=== PATIENT | male | born 1950 | race Two or more races ===

== ENCOUNTER → 2016-06-27 | Outpatient (CLI) | payer OTHER ==
[2016-01-09 13:39] VITALS: BP 113/82
[~2016-06-27] MED LIST: ATOR20TA58 PO; CONTRAST GIVEN MC PRN; DICL100G7 TP; DOCU-27 PO; HYDR-2666 PO; HYDR-971 PO; HYDR25SU18 RC; IBUPROFEN PO; IOHEXOL 300 MG/ML 100ML VIAL. IV ONE; OMEP20TA63 PO; ONDA4TAB10 PO; OXYC10TA32 PO; OXYC5TAB88 PO; Oxycodone Hcl/Acetaminophen PO; RANI150T2 PO; Sennosides/Docusate Sodium PO; WARF5TAB PO; Warfarin Sodium MC; ZOLP5TAB PO
--- NOTE | 2016-06-27 09:51 | KCIC ---
PROCEDURE MRI of the lumbar spine without contrast 06/27/2016 HISTORY Worsening chronic low back pain which radiates down both legs. Right knee numbness. TECHNIQUE Unenhanced T1 weighted and T2 weighted sagittal and axial and inversion recovery sagittal images of the lumbar spine were obtained. FINDINGS Comparison is made to radiographs of the lumbar spine dated 06/12/2016. The patient has transitional vertebral anatomy. The transitional vertebral segment will be referred to by the letter T. It is sacralized. A hypoplastic disc is seen at T-S1. Degenerative signal changes are seen involving all of the discs of the lumbar spine. Degenerative signal changes are seen within the marrow surrounding these discs. The conus medullaris is normal in morphology, position, and signal characteristics. At the L1-2 disc space there is mild generalized disc bulge. This is eccentric to the right. Degenerative changes are seen involving the facet joints bilaterally. These findings do not result in significant central spinal canal or neural foraminal stenosis. At the L2-3 disc space there is a mild to moderate generalized disc bulge. This is eccentric to the right. Degenerative changes are seen involving the facet joints bilaterally. There is prominence of the posterior epidural fat. These findings when combined result in mild central spinal canal stenosis. No neural foraminal stenosis is seen. At the L3-4 disc space there is mild generalized disc bulge. This is eccentric to the left. Degenerative changes are seen involving the facet joints bilaterally. There is mild to moderate ligamentum flavum hypertrophy bilaterally. There is prominence of the posterior epidural fat. These findings when combined result in mild central spinal canal stenosis. No neural foraminal stenosis is seen. At the L4-5 disc space there is a mild to moderate generalized disc bulge. This is eccentric to the left. Superimposed on this disc bulge is a left lateral disc osteophyte complex. This measures 4 millimeters in AP diameter. Degenerative changes are seen involving the facet joints bilaterally. Moderate to severe ligamentum flavum hypertrophy is noted. These findings when combined result moderate to severe central spinal canal stenosis. Mild to moderate left neural foraminal stenosis is seen. The right neural foramina is patent. At the L5-T disc space there is a mild to moderate generalized disc bulge. This is eccentric to the right. Degenerative changes are seen involving the facet joints bilaterally. There is moderate to severe ligamentum flavum hypertrophy bilaterally. These findings when combined result in mild to moderate central spinal canal stenosis. Mild right neural foraminal stenosis is seen. The left neural foramina is patent. The T-S1 disc space is normal. IMPRESSION The changes of degenerative disc disease are seen throughout the lumbar spine. These findings result in mild central spinal canal stenosis at L2-3 and L3-4, moderate to severe central spinal canal stenosis at L4-5 and mild to moderate central spinal canal stenosis at L5-T. Mild to moderate left neural foraminal stenosis is seen at L4-5. Mild right neural foraminal stenosis is seen at L5-T. Electronically signed by: Konrad Fink MD (Jun 27, 2016 09:49:46)
== END | disposition home or self-care (01) ==
LOC: KCIC MRI 08:28
PROVIDERS: ATTEND Orthopaedic Surgery Sports Medicine
DX: M51.16 Intervertebral disc disorders with radiculopathy, lumbar region (principal); M54.5 Low back pain
CPT/HCPCS: 72148

== ENCOUNTER → 2016-07-31 | Outpatient (CLI) | payer OTHER ==
[2016-01-09 13:39] VITALS: BP 113/82
[~2016-07-31] MED LIST changes: -CONTRAST GIVEN MC PRN; -IOHEXOL 300 MG/ML 100ML VIAL. IV ONE; +WARF-78 PO; -WARF5TAB PO
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
== END | disposition home or self-care (01) ==
LOC: PNCL 10:31
PROVIDERS: ATTEND Anesthesiology
DX: M54.5 Low back pain (principal); M79.605 Pain in left leg; M79.604 Pain in right leg
CPT/HCPCS: 99214

== ENCOUNTER → 2016-08-14 | Outpatient (CLI) | payer OTHER ==
[2016-01-09 13:39] VITALS: BP 113/82
[~2016-08-14] MED LIST changes: +IOHEXOL 180 MG/ML 10 ML VIAL. ONE; +methylPREDNISolone ACETATE 40 MG/ML VIAL. ONE; +methylPREDNISolone ACETATE 80 MG/ML VIAL. ONE
--- NOTE | 2016-08-14 23:44 | PAIN ---
DATE OF SERVICE: 08/14/2016 DIAGNOSIS: Lumbar radiculopathy with lumbar degenerative disk disease and lumbar spinal stenosis. HISTORY OF PRESENT ILLNESS: The patient is a 66-year-old male who returns for followup status post initial evaluation and preauthorization for lumbar epidural steroid injection. The patient returns today reporting still significant pain in the low back and bilateral lower extremities, right greater than left side, in the posterior gluteus, posterior thigh, lower leg, calf and to the feet. The patient reports no new motor or sensory deficits. No new bowel or bladder incontinence, but still significant pain. The patient did get approved for an injection today, would like to proceed with it. The patient reports his pain is a 10 on a scale of 10, described as constant, severe, dull, aching radiating into the lower legs, again worse on the right side. The patient reports no new motor or sensory deficits, no new bowel or bladder incontinence or other complaints. PHYSICAL EXAMINATION: VITAL SIGNS: Today, the patient's blood pressure is 135/91, pulse of 90, respirations 18, temperature 98.2 degrees Fahrenheit, height is 5 feet 5 inches, weight is 214 pounds. GENERAL: The patient is awake, alert, oriented and appropriate, very pleasant demeanor. The patient is accompanied by his spouse who served as an funds development director/evaluation engineer. HEENT: Exam shows normocephalic and atraumatic. The patient is wearing eyeglasses. Extraocular movements are intact and symmetrical. Oral cavity shows mucous membranes are moist and pink. Dentition is intact. NECK: Shows anterior throat supple without palpable lymphadenopathy noted. Swallow reflex is symmetrical. CHEST: Shows normal on inspection. Breath sounds are clear to auscultation bilaterally. HEART: Shows S1 and S2 clear. ABDOMEN: Obese, soft, nontender, nondistended. No palpable organomegaly. No new rebound or guarding demonstrated. BACK: Shows spine grossly in the midline. Lumbar paraspinous muscle shows some moderate tenderness with palpation in the lower lumbar distribution bilaterally without radiation. EXTREMITIES: The patient's lower extremities showed deep tendon reflexes at 2+ in the patella and 1+ tendo calcaneus tendons. Motor exam is approximately 4 on a scale of 5 with quadriceps, hamstrings and dorsiflexion, extension and equal. Options were discussed with the patient. The patient's old chart was reviewed as his current medication regimen and updated. Current review of systems updated today as well, and we will proceed with a lumbar epidural steroid injection today with fluoroscopic guidance. Risks were again discussed including but not limited to bleeding, infection, possibility of epidural hematoma, subsequent neurologic compromise, dural puncture, headaches, spinal cord and/or nerve damage, side effects of steroid medication and poor results regarding pain control. The patient understands and wishes to proceed. The patient will return to clinic in approximately 2 weeks for followup. He was counseled on his return appointment, activity level and side effects to be aware of. DIAGNOSES: Lumbar radiculopathy with lumbar spinal stenosis and lumbar degenerative disk disease. PROCEDURE: Lumbar epidural steroid injection in translaminar approach at the L5-S1 level using C-arm fluoroscopic guidance under sterile prep and drape using local anesthetic. MEDICATIONS INJECTED: Depo-Medrol 120 mg plus 10 mL of preservative-free normal saline and 2 mL of Isovue for contrast. CONDITION AT DISCHARGE: Stable. The patient tolerated the procedure well, had no complications. ANGEL SUNSHINE MD DR: CHANEL/chidi JOB#: [id number] / [id number]
== END | disposition home or self-care (01) ==
LOC: PNCL 10:14
PROVIDERS: ATTEND Anesthesiology
DX: M51.16 Intervertebral disc disorders with radiculopathy, lumbar region (principal); M48.06 Spinal stenosis, lumbar region; E78.00 Pure hypercholesterolemia, unspecified; E66.9 Obesity, unspecified; K21.9 Gastro-esophageal reflux disease without esophagitis; M16.11 Unilateral primary osteoarthritis, right hip; M17.11 Unilateral primary osteoarthritis, right knee; Z96.651 Presence of right artificial knee joint; Z86.39 Personal history of other endocrine, nutritional and metabolic disease
CPT/HCPCS: 62323; J1030; J1040

== ENCOUNTER → 2016-09-05 | Outpatient (CLI) | payer OTHER ==
[2016-01-09 13:39] VITALS: BP 113/82
[~2016-09-05] MED LIST changes: -IOHEXOL 180 MG/ML 10 ML VIAL. ONE; -methylPREDNISolone ACETATE 40 MG/ML VIAL. ONE; -methylPREDNISolone ACETATE 80 MG/ML VIAL. ONE
--- NOTE | 2016-09-06 07:16 | PAIN ---
DATE OF SERVICE: 09/05/2016 PROGRESS NOTE FOR PAIN CLINIC DIAGNOSIS: Lumbar radiculopathy with lumbar degenerative disk disease and lumbar spinal stenosis. HISTORY OF PRESENT ILLNESS: The patient is a 66-year-old male who returns for followup status post lumbar epidural steroid injection x 1. The patient reports about 50% improvement in the low back and left leg is completely pain free. The patient reports still some pain in the right leg in the right posterior gluteus, posterior thigh, posterior calf, radiating, rates it a 10 on a scale of 10 at its worst and an 8 ____ pain, is a sharp, radiating, severe, shooting, sometimes aching and burning pain in the right leg, but again the left leg is doing much better. The patient reports it has not been awakening him from sleep at night. He has been increasing his activity with greater ease and comfort, especially with the left leg, but again some pain in the left than the right side. The patient reports no new motor or sensory deficits, no new bowel or bladder incontinence, very pleased with his progress thus far. PHYSICAL EXAMINATION: VITAL SIGNS: The patient's blood pressure is 132/90, pulse 78, respirations are 20, temperature is 98.0 degrees Fahrenheit. Height is 5 feet 5 inches, weight is 212 pounds. GENERAL: The patient is awake, alert, oriented, appropriate, very pleasant demeanor. HEENT: Shows normocephalic, atraumatic. Extraocular movements are intact and symmetrical. Oral cavity: His mucous membranes are moist and pink. Dentition is intact. NECK: Shows anterior throat supple without palpable lymphadenopathy noted. CHEST: Shows normal on inspection. Breath sounds are clear to auscultation bilaterally. HEART: Shows S1 and S2 clear. ABDOMEN: Soft, nontender, nondistended. No palpable organomegaly is noted. BACK: Shows spine grossly in the midline. Lumbar paraspinous muscle shows symmetrical on inspection, on palpation shows some [id number] tenderness with palpation diffusely in the lumbar paraspinous muscles, but without radiation. No tenderness over the sacrum or sacroiliac regions. EXTREMITIES: Lower extremities show deep tendon reflexes at 2+ in the patellar, 1+ tendo-calcaneus tendons, are equal. Motor exam is strong with approximately 4 on a scale of 5, dorsiflexion, extension, quadriceps and hamstring flexion and are equal bilaterally. PLAN: Options were discussed with the patient. The patient's old chart was reviewed as was his current medication regimen and updated. Current review of systems updated today as well. We will preauthorize the patient for a second lumbar epidural steroid injection as he did very well with the first one with still some radicular pain returning on the right side, left side again near 100% improvement. Once the patient is preauthorized, we will have him return and proceed at that time. ANGEL SUNSHINE MD DR: CHANEL/chidi JOB#: [id number] / [id number]
== END | disposition home or self-care (01) ==
LOC: PNCL 10:23
PROVIDERS: ATTEND Anesthesiology
DX: M51.16 Intervertebral disc disorders with radiculopathy, lumbar region (principal); M48.06 Spinal stenosis, lumbar region
CPT/HCPCS: 99212

== ENCOUNTER → 2016-09-19 | Outpatient (CLI) | payer OTHER ==
[2016-01-09 13:39] VITALS: BP 113/82
[~2016-09-19] MED LIST changes: +DICL100G18 TP; -DICL100G7 TP; +DOCU-109 PO; -DOCU-27 PO; -HYDR-2666 PO; +HYDR-2758 PO; +IOHEXOL 180 MG/ML 10 ML VIAL. ONE; -OXYC10TA32 PO; +OXYC10TA45 PO; +methylPREDNISolone ACETATE 40 MG/ML VIAL. ONE; +methylPREDNISolone ACETATE 80 MG/ML VIAL. ONE
--- NOTE | 2016-09-20 00:18 | PAIN ---
DATE OF SERVICE: 09/19/2016 DIAGNOSES: Lumbar radiculopathy with lumbar spinal stenosis and lumbar degenerative disk disease. HISTORY OF PRESENT ILLNESS: The patient is a 66-year-old male who returns for followup status post lumbar epidural steroid injection x 1. The patient reports about 50% improvement, but still some pain in the low back and right lower extremity as was previously, reports as high as 10 on a scale of 10 and least as a 6 on a scale of 10. Once again, the patient has his son with him who serves as a freelance interpreter/translator for [place] [employer]. The patient reports otherwise doing well. No new motor or sensory deficits, no bowel or bladder incontinence, still sharp pain in the low back, right lower extremity radiating to the anterior thigh, medial thigh and posterior thigh to some extent as well. The patient reports it awakens him from sleep occasionally, ____ every night he sleeps about 6-7 hours at a time and he repositions, ____ on his right side is much better. The patient reports no new changes. No new bowel or bladder incontinence, no new motor or sensory deficits. PHYSICAL EXAMINATION: VITAL SIGNS: The patient's blood pressure 129/83, pulse 87, respirations 20, temperature 98.1 degrees Fahrenheit, weight is 212 pounds. GENERAL: The patient is awake, alert, oriented, appropriate, very pleasant demeanor. HEENT: Head shows normocephalic, atraumatic. Extraocular movements are intact and symmetrical. Oral cavity, mucous membranes are moist and pink. Dentition is intact. NECK: Shows anterior throat supple without palpable lymphadenopathy noted. Swallow reflex is symmetrical. CHEST: Shows normal on inspection. Breath sounds are clear to auscultation bilaterally. HEART: Shows S1 and S2 clear. ABDOMEN: Soft, nontender, nondistended. BACK: Shows spine grossly in the midline. Lumbar paraspinous muscle shows some moderate tenderness to palpation, but only diffusely bilaterally in the lower lumbar distribution without atrophy, hypertrophy or asymmetry. The patient shows good rotation of motion of the lumbar spine, both laterally greater than 10 degrees right and left as well as extension greater than 10 degrees, forward flexion to 45 degrees without difficulty. EXTREMITIES: Lower extremities showed deep tendon reflexes 2+ in the patellar, 1+ tendo calcaneus tendons. Motor exam is approximately 4 on a scale of 5, but equal and symmetrical with dorsiflexion, extension, quadriceps and hamstring flexion bilaterally. PLAN: Options were discussed with the patient. The patient's old chart was reviewed as his current medication regimen updated. Current review of systems updated today as well. We will proceed with the second lumbar epidural steroid injection using C-arm fluoroscopic guidance. Risks were again discussed including, but not limited to bleeding, infection, possibility of epidural hematoma and subsequent neurologic compromise, dural puncture, headaches, spinal cord and/or nerve damage, side effects of steroid medication and poor results regarding pain control. The patient understands and wishes to proceed. The patient will return to clinic in approximately 2 weeks for followup. He was counseled to return appointment, activity level and side effects to be aware of. DIAGNOSES: Lumbar radiculopathy with lumbar spinal stenosis and lumbar degenerative disk disease. PROCEDURES: Lumbar epidural steroid injection in translaminar approach at the L5-S1 level using C-arm fluoroscopic guidance under sterile prep and drape using local anesthetic. MEDICATIONS INJECTED: A total of 120 mg Depo-Medrol plus 10 mL preservative-free normal saline and 2 mL Isovue for contrast. CONDITION AT DISCHARGE: Stable. The patient tolerated procedure well, had no complications. ANGEL SUNSHINE MD DR: CHANEL/chidi JOB#: [id number] / [id number]
== END | disposition home or self-care (01) ==
LOC: PNCL 09:45
PROVIDERS: ATTEND Anesthesiology
DX: M51.16 Intervertebral disc disorders with radiculopathy, lumbar region (principal); M48.06 Spinal stenosis, lumbar region; E78.00 Pure hypercholesterolemia, unspecified; K21.9 Gastro-esophageal reflux disease without esophagitis; E66.9 Obesity, unspecified; M16.11 Unilateral primary osteoarthritis, right hip; M17.11 Unilateral primary osteoarthritis, right knee; Z96.651 Presence of right artificial knee joint; Z86.39 Personal history of other endocrine, nutritional and metabolic disease; Z86.69 Personal history of other diseases of the nervous system and sense organs; Z68.44 Body mass index [BMI] 60.0-69.9, adult
CPT/HCPCS: 62323; J1030; J1040

== ENCOUNTER → 2017-01-15 | Outpatient (CLI) | payer OTHER ==
[2016-01-09 13:39] VITALS: BP 113/82
[~2017-01-15] MED LIST changes: -IOHEXOL 180 MG/ML 10 ML VIAL. ONE; -methylPREDNISolone ACETATE 40 MG/ML VIAL. ONE; -methylPREDNISolone ACETATE 80 MG/ML VIAL. ONE
--- NOTE | 2017-01-15 11:50 | PAIN ---
DATE OF SERVICE: 01/15/2017 PROGRESS NOTE FOR PAIN CLINIC DIAGNOSES: Lumbar radiculopathy with lumbar spinal stenosis with lumbar degenerative disk disease. HISTORY OF PRESENT ILLNESS: The patient is a 66-year-old male who returns for followup, last seen 09/19/2016. The patient did very well. He had a lumbar epidural steroid injection at that time with near 100% improvement for about one month. The patient reports for the first 2 weeks, he was doing very, very well. After that the pain began to return very slightly but still have 90% improvement for the next 2 weeks. After that the pain is returning very gradually, not with any new injury or accident that he is aware of but still pain returning now over the past month or two with pain in the low back, right posterior gluteus, posterior thigh and to the posterior calf radiating in the L5-S1 dermatomal distribution with 10 on a 10 scale at its worst, is a 9 on average and 8 is at least and is 8 today. The patient was with constant, severe, sharp, aching and shooting pain, can be dull tingling and cramping as well. The patient reports it awakens him from sleep occasionally, sleeps 4 hours at a time. He is able to be repositioned and get back to sleep without too much difficulty. The patient reports no new motor or sensory deficits, no new bowel or bladder incontinence or other complaints. PHYSICAL EXAMINATION: VITAL SIGNS: The patient's blood pressure 156/109, pulse 85, respirations 18 and temperature 98.0 degrees Fahrenheit. Height is 5 feet 5 inches and weighs 222 pounds. GENERAL: The patient is awake, alert, oriented, appropriate and very pleasant demeanor. HEENT: Head shows normocephalic and atraumatic. Extraocular movements are intact and symmetrical. Oral cavity, mucous membranes are moist and pink. Dentition is intact. NECK: Shows anterior throat supple without palpable lymphadenopathy noted. Swallow reflex is symmetrical. CHEST: Shows normal on inspection. Breath sounds are clear to auscultation bilaterally. HEART: Shows S1 and S2 clear. ABDOMEN: Soft, nontender and nondistended. No palpable organomegaly noted. No rebound or guarding demonstrated. BACK: Shows spine grossly in the midline. Normal appearing cervical, lumbar and thoracic kyphotic and lordotic curvatures with inspection of the lumbar distribution shows symmetrical musculature with the palpation shows moderately tender with palpation in the lower lumbar distribution and slightly more on the right than the left but without an asymmetry. The patient shows good rotational motion of the lumbar spine, both laterally as well as extension and flexion. LOWER EXTREMITIES: Show deep tendon reflexes 2+ in the patellar, 1+ tendo-calcaneus tendons, are equal. Motor exam is strong with approximately 4 on a scale of 5 dorsiflexion, extension but symmetrical bilaterally. Positive straight leg raise is noted on the right side about 40 degrees but decreased with knee flexion and left side is negative. Peripheral pulses are 1+ posterior tibial bilaterally. No peripheral edema is noted. Options were discussed with the patient and the patient's old chart was reviewed as current and his current medication regimen updated. Current review of systems updated today as well and we will preauthorize the patient for a lumbar epidural steroid injection with recurrent radicular pain in the right lower extremity in the L5-S1 dermatomal distribution, again improved significantly by 100% for almost 1 month following his last injection. The patient was given Medrol Dosepak with instructions, side effects to be aware for the meantime and we will follow up in approximately 2 weeks as scheduled for lumbar epidural steroid injection at that time. ANGEL SUNSHINE MD DR: CHANEL/chidi JOB#: [id number] / [id number]
== END | disposition home or self-care (01) ==
LOC: PNCL 10:11
PROVIDERS: ATTEND Anesthesiology
DX: M51.16 Intervertebral disc disorders with radiculopathy, lumbar region (principal); M48.061 Spinal stenosis, lumbar region without neurogenic claudication; M79.604 Pain in right leg
CPT/HCPCS: 99212

== ENCOUNTER → 2017-06-12 | Outpatient (CLI) | payer OTHER | END | disposition home or self-care (01) | LOC: PNCL 07:41 | DX: M48.061 Spinal stenosis, lumbar region without neurogenic claudication (principal); M51.36 Other intervertebral disc degeneration, lumbar region; M54.16 Radiculopathy, lumbar region | CPT/HCPCS: 99212 ==

== ENCOUNTER → 2017-06-26 | Outpatient (CLI) | payer OTHER ==
[~2017-06-26] MED LIST changes: -ATOR20TA58 PO; -DICL100G18 TP; -DOCU-109 PO; -HYDR-2758 PO; -HYDR-971 PO; -HYDR25SU18 RC; -IBUPROFEN PO; +IOHEXOL 180 MG/ML 10 ML VIAL.; -OMEP20TA63 PO; -ONDA4TAB10 PO; -OXYC10TA45 PO; -OXYC5TAB88 PO; -Oxycodone Hcl/Acetaminophen PO; -RANI150T2 PO; -Sennosides/Docusate Sodium PO; -WARF-78 PO; -Warfarin Sodium MC; -ZOLP5TAB PO; +methylPREDNISolone ACETATE 40 MG/ML VIAL.; +methylPREDNISolone ACETATE 80 MG/ML VIAL.
== END | disposition home or self-care (01) ==
LOC: PNCL 07:49
DX: M51.16 Intervertebral disc disorders with radiculopathy, lumbar region (principal); M48.061 Spinal stenosis, lumbar region without neurogenic claudication; G89.29 Other chronic pain; E78.00 Pure hypercholesterolemia, unspecified; M19.90 Unspecified osteoarthritis, unspecified site; K21.9 Gastro-esophageal reflux disease without esophagitis; F17.210 Nicotine dependence, cigarettes, uncomplicated; Z96.651 Presence of right artificial knee joint; Z98.890 Other specified postprocedural states; Z79.899 Other long term (current) drug therapy
CPT/HCPCS: 62323; J1030; J1040; Q9965

== ENCOUNTER → 2017-07-10 | Outpatient (CLI) | payer OTHER | LOC: PNCL 07:35 | DX: M51.16 Intervertebral disc disorders with radiculopathy, lumbar region (principal); M48.061 Spinal stenosis, lumbar region without neurogenic claudication; E78.00 Pure hypercholesterolemia, unspecified; E66.9 Obesity, unspecified; K21.9 Gastro-esophageal reflux disease without esophagitis; Z96.651 Presence of right artificial knee joint; M16.11 Unilateral primary osteoarthritis, right hip; M17.11 Unilateral primary osteoarthritis, right knee | CPT/HCPCS: 62323; J1030; J1040; Q9965 ==

== ENCOUNTER → 2017-07-24 | Outpatient (CLI) | payer OTHER | END | disposition home or self-care (01) | LOC: PNCL 07:43 | DX: M51.16 Intervertebral disc disorders with radiculopathy, lumbar region (principal); M48.061 Spinal stenosis, lumbar region without neurogenic claudication | CPT/HCPCS: 99212 ==

== ENCOUNTER → 2018-08-23 | Outpatient (CLI) | payer OTHER ==
[2016-01-09 13:39] VITALS: BP 113/82
[~2018-08-23] MED LIST changes: +ATOR20TA58 PO; +DICL100G18 TP; +DOCU-109 PO; +HYDR-2761 PO; +HYDR-3164 PO; +HYDR25SU18 RC; +IBUP-1027 PO; +IBUPROFEN PO; -IOHEXOL 180 MG/ML 10 ML VIAL.; +NAPR-514 PO; +OMEP20TA63 PO; +ONDA4TAB10 PO; +OXYC10TA46 PO; +OXYC5TAB88 PO; +Oxycodone Hcl/Acetaminophen PO; +RANI150T2 PO; +Sennosides/Docusate Sodium PO; +WARF-78 PO; +Warfarin Sodium MC; +ZOLP5TAB PO; -methylPREDNISolone ACETATE 40 MG/ML VIAL.; -methylPREDNISolone ACETATE 80 MG/ML VIAL.
--- NOTE | 2018-08-23 13:08 | PAIN ---
DATE OF SERVICE: 08/23/2018 DIAGNOSIS: Lumbar radiculopathy with lumbar spinal stenosis, lumbar degenerative disk disease. HISTORY OF PRESENT ILLNESS: The patient is a 68-year-old male who returns for followup, last seen on 07/24/2017. The patient had lumbar epidural steroid injection, did very well, about 80% improvement, lasting for several months after the injection. The patient reports the pain is returning now and getting sooner, but has not been able to, but is here today with complaints to low back and right lower extremity with radiating pain in the posterior gluteus, posterior thigh, posterior calf, posterior ankle and into the foot on the right side, some across the low back. It was dull, aching on the left side as well, but mostly on the right side with radicular pain in the right L5-S1 dermatomal distribution as he has had previously. The patient reports his leg starts to feel numb, it is a shooting pain, is sharp and aching in the back as well as dull. The patient reports it is a 10 on a scale of 10 at all times, average, worst and least over the past week and is a 10 today. The patient reports the right leg does get numb with walking and standing, better with sitting or lying down, does not awaken him from sleep at night. Initially he was doing much better, doing increased distance walking, household activities, work activities, traveling with greater ease and comfort. The patient reports now the pain is returning significantly. He is using a cane, which he has with him today, using his left hand. The patient reports no new motor or sensory deficits, no new bowel or bladder incontinence or other complaints. PHYSICAL EXAMINATION: VITAL SIGNS: The patient's blood pressure 135/92, pulse 78, respirations 16, temperature is 98.0 degrees Fahrenheit, height is 5 feet 5 inches, and weight is 213 pounds. GENERAL: The patient is awake, alert, oriented, appropriate, very pleasant demeanor. HEENT: Head is normocephalic, atraumatic. Extraocular movements are intact and symmetrical. Oral cavity: Mucous membranes moist and pink. Dentition is intact. NECK: Shows anterior throat supple without palpable lymphadenopathy noted. Swallow reflex symmetrical. CHEST: Shows normal on inspection. Breath sounds clear to auscultation bilaterally. HEART: Shows S1, S2 clear. No murmurs auscultated. ABDOMEN: Soft, nontender, nondistended. No palpable organomegaly is noted. No rebound or guarding demonstrated. BACK: Shows spine grossly in the midline. Normal appearing thoracic kyphosis and lumbar lordotic curvature. Lumbar paraspinous muscle shows symmetrical on inspection. With palpation shows some moderate tenderness diffusely, but only diffusely bilaterally without radiation. The patient has good rotational motion of lumbar spine, both laterally as well as extension and flexion without significant difficulty. EXTREMITIES: Lower extremities show deep tendon reflexes 2+ in the patellar and tendo-calcaneus tendons. Motor exam is strong with approximately 4 on a scale of 5 right dorsiflexion and extension, 5/5 on the left. Peripheral pulses of 1+ posterior tibia. No peripheral edema is noted. The patient does have a positive straight leg raise on the right at about 45 degrees, decreased with knee flexion; left side is negative. Gaenslen's and Devyn's maneuvers are negative bilaterally as well. Options were discussed with the patient. The patient's old chart was reviewed as his current medication regimen updated. Current review of systems updated today as well. We will preauthorize the patient for a lumbar epidural steroid injection. It has been over a year, he did very well, about 80% improvement until the last month, still with radicular pain in right L5-S1 dermatomal distribution. We will plan on a translaminar approach at the L5-S1 level. Once approved, the patient will try Medrol Dosepak. In the meantime, was given instructions as well as side effects to be aware of with the medication. The patient will continue doing stretching and strengthening exercises that he has been doing over the past year and also walking daily, although it is getting more difficult, using his cane. Encouraged him to maintain this as well as the stretching and strengthening exercises he is already doing. We will follow up in approximately one week to plan on lumbar epidural steroid injection at that time. ANGEL SUNSHINE MD DR: CHANEL/chidi JOB#: [id number] / [id number]
== END | disposition home or self-care (01) ==
LOC: PNCL 08:28
PROVIDERS: ATTEND Anesthesiology
DX: M51.16 Intervertebral disc disorders with radiculopathy, lumbar region (principal); M48.061 Spinal stenosis, lumbar region without neurogenic claudication
CPT/HCPCS: G0463

== ENCOUNTER → 2018-09-07 | Outpatient (CLI) | payer OTHER ==
[2016-01-09 13:39] VITALS: BP 113/82
[~2018-09-07] MED LIST changes: +IOHEXOL 180 MG/ML 10 ML VIAL. ONE; +methylPREDNISolone ACETATE 40 MG/ML VIAL. ONE; +methylPREDNISolone ACETATE 80 MG/ML VIAL. ONE
--- NOTE | 2018-09-07 22:52 | PAIN ---
DATE OF SERVICE: 09/07/2018 PROGRESS NOTE FOR PAIN CLINIC: DIAGNOSES: Lumbar radiculopathy with lumbar spinal stenosis, lumbar degenerative disk disease. HISTORY OF PRESENT ILLNESS: The patient is a 68-year-old male who returns for followup status post evaluation and preauthorization for lumbar epidural steroid injection. The patient obtained that now and would like to proceed, still pain in the low back, right lower extremity as it was previously, posterior gluteus, posterior thigh, posterior calf, radiating to the foot, worse with walking, standing, changing positions. The patient is using a cane and has it with him today. Reports his pain has been fairly consistent, slightly better than it was on his last visit, but still significant. The patient reports it is aching, it is sharp and cramping in the low back and right leg and at times unbearable. The patient reports it is 9 on a scale of 10 at its worst, 7 on average, 7 at its least and is a 7 today. The patient reports no new motor or sensory deficits, no new bowel or bladder incontinence or other complaints. PHYSICAL EXAMINATION: VITAL SIGNS: The patient's blood pressure 123/83, pulse 78, respirations are 18, temperature 98.5 degrees Fahrenheit. Height is 5 feet 5 inches, weight is 213 pounds. GENERAL: The patient is awake, alert, oriented, appropriate, very pleasant demeanor. HEENT: Head is normocephalic, atraumatic. Extraocular movements are intact and symmetrical. Oral cavity: Mucous membranes moist and pink. Dentition is intact. NECK: Shows anterior throat supple without palpable lymphadenopathy noted. Swallow reflex symmetrical. CHEST: Shows normal with inspection. Breath sounds clear to auscultation bilaterally. HEART: Shows S1, S2 clear. No murmurs auscultated. ABDOMEN: Soft, nontender, nondistended. No palpable organomegaly is noted. No rebound or guarding demonstrated. BACK: Shows spine grossly in the midline. Slight exaggeration of the thoracic kyphosis and minor flattening of lumbar lordotic curvature. Lumbar paraspinous muscle shows symmetrical on inspection, with palpation shows some moderate tenderness diffusely bilaterally, but only diffusely without radiation. The patient has good rotational motion of lumbar spine, both laterally greater than 10 degrees right and left as well as extension greater than 10 degrees, forward flexion 45 degrees without significant pain. EXTREMITIES: The patient's lower extremities show deep tendon reflexes 2+ in the patellar, 1+ tendo-calcaneus tendons. Motor exam is strong with approximately 4 on a scale of 5 on the right with dorsiflexion and extension, 5/5 on the left, but intact and symmetrical with motion. Peripheral pulses are 1+ posterior tibia. No peripheral edema is noted. Options were discussed with the patient. The patient's old chart was reviewed as his current medication regimen updated. Current review of systems updated today as well. We will proceed with a lumbar epidural steroid injection today as the first in this series. Risks were again discussed including, but not limited to bleeding, infection, possibility of epidural hematoma, subsequent neurological compromise, dural-puncture headaches, spinal cord and/or nerve damage, side effects of steroid medication and poor results regarding pain control. The patient understands and wished to proceed. The patient will return to clinic in approximately 2 weeks for followup, was counseled as to return appointment, activity level and side effects to be aware of. DIAGNOSES: Lumbar radiculopathy with lumbar spinal stenosis, lumbar degenerative disk disease. PROCEDURES: Lumbar epidural steroid injection, translaminar approach at the L5-S1 level using C-arm fluoroscopic guidance under sterile prep and drape using local anesthetic. MEDICATION INJECTED: A total of 120 mg Depo-Medrol plus 10 mL of preservative-free normal saline and 2 mL of contrast. CONDITION AT DISCHARGE: Stable. The patient tolerated the procedure well, had no complications. ANGEL SUNSHINE MD DR: CHANEL/chidi JOB#: [id number] / [id number]
== END ==
LOC: PNCL 09:20
PROVIDERS: ATTEND Anesthesiology
DX: M51.16 Intervertebral disc disorders with radiculopathy, lumbar region (principal); M48.061 Spinal stenosis, lumbar region without neurogenic claudication; M54.5 Low back pain; M79.661 Pain in right lower leg
CPT/HCPCS: 62323; J1030; J1040; Q9965

== ENCOUNTER → 2018-09-27 | Outpatient (CLI) | payer OTHER ==
[2016-01-09 13:39] VITALS: BP 113/82
[~2018-09-27] MED LIST changes: -IOHEXOL 180 MG/ML 10 ML VIAL. ONE; -methylPREDNISolone ACETATE 40 MG/ML VIAL. ONE; -methylPREDNISolone ACETATE 80 MG/ML VIAL. ONE
--- NOTE | 2018-09-27 12:13 | PAIN ---
DATE OF SERVICE: 09/27/2018 DIAGNOSES: Lumbar radiculopathy with lumbar spinal stenosis, lumbar degenerative disk disease. HISTORY OF PRESENT ILLNESS: The patient is a 68-year-old male who returns for followup status post lumbar epidural steroid injection x 1. The patient reports about 70% improvement in his low back and right lower extremity pain, still with pain radiating to the right lower extremity, but much improved. He has increased his distance walking and doing activities at home, traveling with greater ease and comfort, sleeping better at night. The patient reports it is still traveling across the low back into the right lower extremity, posterolateral thigh, posterior gluteus, posterior calf into the ankle in an L5-S1 dermatomal distribution on the right side as it was previously, but feeling much better. He is still using a cane to ambulate. Rates his pain as a 3 on a scale of 10 at its worst, average and at its least and is a 3 today. The patient reports it is sharp and cramping in the back and radiating to the right lower extremity. No symptoms on the left side. The patient reports no overt motor loss, but significant fatigability with the right leg with walking and standing. The patient reports no new motor or sensory deficits, no new bowel or bladder incontinence or other complaints. PHYSICAL EXAMINATION: VITAL SIGNS: The patient's blood pressure 140/95, pulse 87, respirations 18, temperature 98.8 degrees Fahrenheit. Height is 5 feet 5 inches, weight is 211 pounds. GENERAL: The patient is awake, alert, oriented, appropriate, very pleasant demeanor. The patient is accompanied by his spouse and his daughter who acts as a senior software engineer analytics. HEENT: Head is normocephalic, atraumatic. The patient wears eye glasses. Extraocular movements are intact and symmetrical. Oral cavity: Mucous membranes moist and pink. NECK: Shows anterior throat supple. CHEST: Shows normal on inspection. Breath sounds are clear bilaterally. HEART: Shows S1, S2 clear. ABDOMEN: Soft, nontender, nondistended. BACK: Shows spine grossly in the midline. Lumbar paraspinous muscle shows symmetrical on inspection, with palpation shows some moderate tenderness diffusely, but without radiation. EXTREMITIES: Lower extremities show deep tendon reflexes at 2+ in the patellar and 1+ tendocalcaneous tendons. Motor exam is approximately 4 on a scale of 5 on the right with dorsiflexion, extension, quadriceps and hamstring flexion and 5/5 on the left. Peripheral pulses are 1+ posterior tibial. No peripheral edema is noted bilaterally. The patient still has mild straight leg raise on the right side at about 40-45 degrees, which is decreased with knee flexion, left side is negative. Peripheral pulses are 1+ posterior tibial. No peripheral edema is noted bilaterally. Options were discussed with the patient. The patient's old chart was reviewed, as his current medication regimen updated. Current review of systems updated today as well. We will preauthorize the patient for a second in the series of lumbar epidural steroid injection with fluoroscopic guidance. The patient is doing quite a bit better with 70% improvement for the first 3 weeks since his last injection with pain radiating at L5-S1 dermatomal distribution on the right side as previously. We will plan on lumbar epidural steroid injection at L5-S1 level, translaminar approach, after approval. The patient will continue doing strengthening and stretching exercises, keep walking to the best of ability and tolerance in the meantime. ANGEL SUNSHINE MD DR: CHANEL/chidi JOB#: [id number] / [id number]
== END | disposition home or self-care (01) ==
LOC: PNCL 10:09
PROVIDERS: ATTEND Anesthesiology
DX: M51.16 Intervertebral disc disorders with radiculopathy, lumbar region (principal); M48.061 Spinal stenosis, lumbar region without neurogenic claudication
CPT/HCPCS: G0463

== ENCOUNTER → 2018-10-12 | Outpatient (CLI) | payer OTHER ==
[2016-01-09 13:39] VITALS: BP 113/82
[~2018-10-12] MED LIST changes: +IOHEXOL 180 MG/ML 10 ML VIAL. ONE; +methylPREDNISolone ACETATE 40 MG/ML VIAL. ONE; +methylPREDNISolone ACETATE 80 MG/ML VIAL. ONE
--- NOTE | 2018-10-12 19:42 | PAIN ---
DATE OF SERVICE: 10/12/2018 DIAGNOSES: Lumbar radiculopathy with lumbar spinal stenosis, lumbar degenerative disk disease. HISTORY OF PRESENT ILLNESS: The patient is a 68-year-old male who returns for followup status post lumbar epidural steroid injection x 1. The patient is about 70% better with his low back and right lower extremity. The patient reports it is returning now in the low back, right posterior gluteus, posterior thigh, posterior calf, tingling, burning, cramping, aching, dull at times across the back and become more constant with walking, better with sitting or lying down, does not awaken him from sleep at night. The patient reports pain is 4 on a scale of 10 at its worst, 4 an average and 3 at its least over the past week and it is 3 today. The patient reports no new motor or sensory deficits, no new bowel or bladder incontinence or other complaints. PHYSICAL EXAMINATION: VITAL SIGNS: He had a blood pressure of 130/87, pulse 101, respirations 18, and temperature 98.4 degrees Fahrenheit. Height is 5 feet 5 inches and weight is 214 pounds. GENERAL: The patient is awake, alert, oriented, appropriate, very pleasant demeanor. HEENT: Head normocephalic and atraumatic. Extraocular movements are intact and symmetrical. Oral cavity: Mucous membranes moist and pink. Dentition is intact. NECK: Shows neck is supple without palpable lymphadenopathy noted. Swallow reflex is symmetrical. CHEST: Shows normal with inspection. Breath sounds clear bilaterally. HEART: Shows S1, S2 clear. ABDOMEN: Soft, nontender, nondistended. No palpable organomegaly is noted. No rebound or guarding demonstrated. BACK: Shows spine grossly in the midline. Moderate tenderness with palpation in the lower lumbar distribution only, but without radiation. EXTREMITIES: The patient's lower extremities shows deep tendon reflexes 2+ in the patellar, 1+ tendo-calcaneus tendons. Motor exam is approximately 4 on a scale of 5 with right dorsiflexion and extension. 5/5 on the left. Peripheral pulses are 1+. No peripheral edema is noted bilaterally. Options were discussed with the patient. The patient's old chart was reviewed. His current medication regimen updated. Current review of systems updated today as well. We will proceed with a second in the series of lumbar epidural steroid injection today with fluoroscopic guidance. Risks were again discussed including, but not limited to bleeding, infection, possibility of epidural hematoma, subsequent neurological compromise, dural puncture, headaches, spinal cord and/or nerve damage, side effects of steroid medication and poor results regarding pain control. The patient understands and wished to proceed. The patient will return to clinic in approximately 2 weeks for followup, was counseled on return appointment, activity level and side effects to be aware of. DIAGNOSIS: Lumbar radiculopathy with lumbar spinal stenosis, lumbar degenerative disk disease. PROCEDURE: Lumbar epidural steroid injection, translaminar approach at the L5-S1 level using C-arm fluoroscopic guidance under sterile prep and drape using local anesthetic. MEDICATION INJECTED: A total of 120 mg of Depo-Medrol plus 10 mL of preservative-free normal saline and 2 mL of Isovue for contrast. CONDITION AT DISCHARGE: Stable. The patient tolerated the procedure well, had no complications. ANGEL SUNSHINE MD DR: CHANEL/chidi JOB#: [id number] / [id number]
== END ==
LOC: PNCL 14:23
PROVIDERS: ATTEND Anesthesiology
DX: M51.16 Intervertebral disc disorders with radiculopathy, lumbar region (principal); M48.061 Spinal stenosis, lumbar region without neurogenic claudication
CPT/HCPCS: 62323; J1030; J1040; Q9965

== ENCOUNTER → 2018-11-04 | Outpatient (CLI) | payer OTHER ==
[2016-01-09 13:39] VITALS: BP 113/82
[~2018-11-04] MED LIST changes: -IOHEXOL 180 MG/ML 10 ML VIAL. ONE; -methylPREDNISolone ACETATE 40 MG/ML VIAL. ONE; -methylPREDNISolone ACETATE 80 MG/ML VIAL. ONE
--- NOTE | 2018-11-05 02:57 | PAIN ---
DATE OF SERVICE: 11/04/2018 PROGRESS NOTE FOR PAIN CLINIC DIAGNOSES: Lumbar radiculopathy with lumbar spinal stenosis, lumbar degenerative disk disease. HISTORY OF PRESENT ILLNESS: The patient is a 68-year-old male who returns for followup status post lumbar epidural steroid injection x 2. The patient reports he has done very well with about 70% improvement in the low back and right lower extremity pain. The patient reports the pain is returning now, but was doing much better after his last injection on 10/22/2018 and the pain is just now beginning to return about almost 3 weeks later. The patient reports that the pain is aching and sharp type shooting in the right leg, stabbing and becoming more noticeable, more constant, more unbearable with walking and standing. The patient reports it is better with sitting or lying down, does not awaken him from sleep at night, still has radicular pain in the right lower extremity following an L5-S1 dermatomal distribution in the posterior gluteus, posterior thigh, posterior calf and just above the ankle on the right side only. The patient reports no new motor or sensory deficits, no new bowel or bladder incontinence or other complaints. The patient reports the pain is a 10 on a scale of 10 at its worst, 10 on average over the last week and is a 7 at its least and is a 7 today. PHYSICAL EXAMINATION: VITAL SIGNS: The patient's blood pressure is 143/100, pulse 81, respirations 20, temperature 98.2 degrees Fahrenheit, height is 5 feet 5 inches, weight is 210 pounds. GENERAL: The patient is awake, alert, oriented, appropriate, very pleasant demeanor. HEENT: Head is normocephalic, atraumatic. Extraocular movements are intact and symmetrical. Oral cavity: Mucous membranes moist and pink. Dentition is intact. NECK: Shows anterior throat supple without palpable lymphadenopathy noted. Swallow reflex symmetrical. CHEST: Shows normal on inspection. Breath sounds clear to auscultation bilaterally. HEART: Shows S1, S2 clear. No murmurs auscultated. ABDOMEN: Soft, nontender, nondistended. No palpable organomegaly is noted. No rebound or guarding demonstrated. BACK: Shows spine grossly in the midline. Normal appearing thoracic kyphosis and lumbar lordotic curvature. Lumbar paraspinous muscles shows symmetrical on inspection and palpation. There is a moderate tenderness in the inferior aspect of the lumbar paraspinous musculature bilaterally but only diffusely without radiation. The patient has good rotational motion of lumbar spine, both laterally greater than 10 degrees right and left as well as extension greater than 10 degrees, forward flexion 45 degrees without significant pain reported. EXTREMITIES: Lower extremities show deep tendon reflexes 2+ in the patellar, 1+ tendo-calcaneus tendons. Motor exam is approximately 4 on a scale of 5 on the right, 5/5 on the left with dorsiflexion and extension. Peripheral pulses are 1+ posterior tibia. No peripheral edema is noted bilaterally. Options were discussed with the patient. The patient's old chart was reviewed as his current medication regimen updated. Current review of systems updated today as well. We will preauthorize the patient for a third lumbar epidural steroid injection as he still has clinical radiculopathy in the L5-S1 dermatomal distribution on the right for a L5-S1 translaminar injection. The patient will return to the clinic once this is approved and we will proceed at that time. The patient will continue with strengthening and stretching exercises on his own. Continue walking daily as tolerated. The patient is using a cane in his right hand with ambulation and he will do this as tolerated. We will have him return and plan on translaminar L5-S1 dermatomal or translaminar L5-S1 epidural injection on return. ANGEL SUNSHINE MD DR: CHANEL/chidi JOB#: [id number] / [id number]
== END | disposition home or self-care (01) ==
LOC: PNCL 13:17
PROVIDERS: ATTEND Anesthesiology
DX: M51.16 Intervertebral disc disorders with radiculopathy, lumbar region (principal); M48.061 Spinal stenosis, lumbar region without neurogenic claudication; M96.1 Postlaminectomy syndrome, not elsewhere classified
CPT/HCPCS: G0463

== ENCOUNTER → 2018-11-16 | Outpatient (CLI) | payer OTHER ==
[2016-01-09 13:39] VITALS: BP 113/82
[~2018-11-16] MED LIST changes: +IOHEXOL 180 MG/ML 10 ML VIAL. ONE; +methylPREDNISolone ACETATE 40 MG/ML VIAL. ONE; +methylPREDNISolone ACETATE 80 MG/ML VIAL. ONE
--- NOTE | 2018-11-17 00:09 | PAIN ---
DATE OF SERVICE: 11/16/2018 PROGRESS NOTE FOR PAIN CLINIC DIAGNOSES: Lumbar radiculopathy with lumbar spinal stenosis, lumbar degenerative disk disease. HISTORY OF PRESENT ILLNESS: The patient is a 68-year-old male who returns for followup status post lumbar epidural steroid injections x 2. The patient was awaiting for preauthorization for his last injection, he has obtained and now would like to proceed. He still pain in the low back and right lower extremity, posterior gluteus, posterior thigh, posterior calf, worse with walking, standing, especially with standing upright. The patient reports it is better with sitting and almost goes away immediately when he sits down. The patient's daughter serves as pierogi maker as well as journalism professor from [place] and vice versa. The patient reports the pain is a 10 on a scale of 10 at its worst, 8 on average, 6 at its least and is an 8 today. The patient reports it is aching and sharp at times and shooting and burning in the legs as well as on the lateral aspect of the thigh on the right side only. The patient reports no new motor or sensory deficits, no new bowel or bladder incontinence or other complaints. He even increased his distance walking after his last injection, but the pain has returned after fairly stable amount, but overall is about 70% improved after his last injection. PHYSICAL EXAMINATION: VITAL SIGNS: The patient's blood pressure is 138/87, pulse 80, respirations 18, temperature is 98.4 degrees Fahrenheit, height is 5 feet 5 inches, weight is 212 pounds. GENERAL: The patient is awake, alert, oriented, appropriate, very pleasant demeanor. HEENT: Head is normocephalic, atraumatic. Extraocular movements are intact and symmetrical. Oral cavity, mucous membranes are moist and pink. Dentition is intact. NECK: Shows anterior throat supple without palpable lymphadenopathy noted. Swallow reflex symmetrical. CHEST: Shows normal with inspection. Breath sounds clear to auscultation bilaterally. HEART: Shows S1, S2 clear. No murmurs auscultated. ABDOMEN: Soft, nontender, nondistended. No palpable organomegaly is noted. No rebound or guarding demonstrated. BACK: Shows spine grossly in the midline. Normal appearing thoracic kyphosis and some flattening of lumbar lordotic curvature mildly. Lumbar paraspinous muscle shows symmetrical on inspection, on palpation shows some moderate tenderness diffusely in the middle and lower distribution of paraspinous muscles, but only diffusely, slightly more on the right side than the left. EXTREMITIES: The patient's lower extremities show deep tendon reflexes 2+ in the patellar, 1+ tendo-calcaneus tendons. Motor exam is approximately 4 on a scale of 5 with right dorsiflexion, extension 5/5 on the left. Peripheral pulses are 1+ posterior tibia. No peripheral edema is noted bilaterally. Options were discussed with the patient. The patient's old chart was reviewed as his current medication regimen updated. Current review of systems updated today as well. We will proceed with a third in the series of lumbar epidural steroid injection today with fluoroscopic guidance. Risks were again discussed including, but not limited to bleeding, infection, possibility of epidural hematoma, subsequent neurological compromise, dural puncture, headaches, spinal cord and/or nerve damage, side effects of steroid medication and poor results regarding pain control. The patient understands and wished to proceed. The patient will return to clinic in approximately 2 weeks for followup. He was counseled on return appointment, activity level and side effects to be aware of. DIAGNOSES: Lumbar radiculopathy with lumbar spinal stenosis, lumbar degenerative disk disease. PROCEDURE: Lumbar epidural steroid injection, translaminar approach L5-S1 level using C-arm fluoroscopic guidance under sterile prep and drape using local anesthetic. MEDICATION INJECTED: A total of 120 mg Depo-Medrol plus 10 mL of preservative-free normal saline and 2 mL of contrast. CONDITION AT DISCHARGE: Stable. The patient tolerated the procedure well, had no complications. ANGEL SUNSHINE MD DR: CHANEL/chidi JOB#: [id number] / [id number]
== END ==
LOC: PNCL 14:01
PROVIDERS: ATTEND Anesthesiology
DX: M51.16 Intervertebral disc disorders with radiculopathy, lumbar region (principal)
CPT/HCPCS: 62323; J1030; J1040; Q9965

== ENCOUNTER → 2020-01-13 | Outpatient (CLI) | payer MEDICAID, OTHER ==
[2016-01-09 13:39] VITALS: BP 113/82
[~2020-01-13] MED LIST changes: -DICL100G18 TP; +DICL100G54 TP; -IOHEXOL 180 MG/ML 10 ML VIAL. ONE; -WARF-78 PO; +WARF5TAB2 PO; -methylPREDNISolone ACETATE 40 MG/ML VIAL. ONE; -methylPREDNISolone ACETATE 80 MG/ML VIAL. ONE
--- NOTE | 2020-01-13 11:38 | KCIC ---
EXAM: MRI Lumbar Spine without IV contrast INDICATION: Reason: SPINAL STENOSIS LUMBOSACRAL REGION / Spl. Instructions: Epidurals are no longer helping. / History: Pt c/o spine pain from neck down. Pain in legs, especailly the right.. TECHNIQUE: Sagittal T1-w, T2-w, and STIR images, and axial T1-w and T2-w images of the lumbar spine. COMPARISON: MR L-spine of 06/27/2016 FINDINGS: The lowest formed disc is referred to as the L5-S1 level. By this numbering convention, L5 is a transitional vertebra with a slightly hypoplastic disc at L5-S1. On the previous examination, L5 was referred to as a transitional vertebra T, and the level above that (the current L4 vertebra) was referred to as L5. ALIGNMENT: Alignment is within normal limits. OSSEOUS: No evidence of fracture or bone destruction. Marrow signal is within normal limits. CONUS MEDULLARIS & CAUDA EQUINA: The conus medullaris is in normal position. The conus medullaris and cauda equina are intrinsically normal. SOFT TISSUES: Right adrenal mass measuring 2.3 x 1.6 cm is incidentally noted. DISC LEVELS: T12-L1: Unremarkable. L1-L2: Mild diffuse disc bulge with slight loss of height and retrolisthesis is present. There is minimal flattening of the ventral thecal sac but no significant central canal stenosis and no definite foraminal or lateral recess stenosis. L2-L3: Mild bilateral ligamentum flavum thickening. Disc desiccation and minimal bulging, results in mild left foraminal narrowing. Central canal and right foramen are patent. There is fluid signal hyperintensity between the spinous processes at L2 and L3. L3-L4: Combination of diffuse disc bulge, bilateral ligamentum flavum thickening, facet hypertrophy results in severe central canal stenosis slightly progressed in the interval with surgical narrowing to an AP diameter of 5.6 mm. There is also severe left foraminal stenosis and moderate right foraminal stenosis. Fluid signal hyperintensity between the spinous processes with mild cortical irregularity is also noted at L3-L4. L4-L5: Bilateral facet hypertrophy and broad disc protrusion with loss of height results in mild central canal narrowing and moderate bilateral lateral recess narrowing. Central canal is mildly narrowed. L5-S1: Hypoplastic disc and minimal facet hypertrophy results in no significant central canal or foraminal stenosis. IMPRESSION: 1. Multilevel lumbar spinal degenerative spondylosis, slightly worse in the interval at the L3-L4 level (previously referred to as L4-L5 on prior imaging). 2. There is a transitional vertebra at the lumbosacral junction which is referred to on this examination as the L5 vertebra (versus vertebra T on the prior exam). Please keep this variation in nomenclature in mind in assessing follow-up examinations or for pretreatment planning. To my knowledge, a CT of the lumbar spine has not been obtained to assess the osseous anatomy in detail. Electronically signed by: Christopher Blanton MD (01/13/2020 11:35 AM) [id number]
== END ==
LOC: KCIC MRI 08:55
PROVIDERS: ATTEND Family Medicine
DX: M47.816 Spondylosis without myelopathy or radiculopathy, lumbar region (principal); M48.07 Spinal stenosis, lumbosacral region; M51.36 Other intervertebral disc degeneration, lumbar region
CPT/HCPCS: 72148